=== PATIENT | female | born 1975 | race Caucasian/White ===

== ENCOUNTER 2024-06-18 22:43 | Emergency (ER) | payer SELFPAY ==
[~2024-06-18] VITALS: Ht 167.6 cm; Wt 63.5 kg
[2024-06-18 23:12] VITALS: BP 138/74; TEMP 98.4; O2SAT 99
[2024-06-18] MEDS ORDERED: CLIN300C12 PO (23:23)
== END 2024-06-18 23:50 | disposition home or self-care (01) ==
LOC: ER 22:47
DX: L03.011 Cellulitis of right finger (principal); F17.200 Nicotine dependence, unspecified, uncomplicated